=== PATIENT | female | born 1990 | race African-American/Black ===

== ENCOUNTER 2020-09-03 13:38 | Emergency (ER) | payer MEDICAID, OTHER ==
[~2020-09-03] VITALS: Ht 160 cm; Wt 91.0 kg
[2020-09-03 13:53] VITALS: BP 124/89
[2020-09-03] MEDS ORDERED: ACETAMINOPHEN 325MG TABLET PO ONE (15:00)
[2020-09-03] MEDS ORDERED: TETRACAINE 0.5% OPHTH DROPS 4ML LEFTEYE ONE (15:00)
[2020-09-03] MEDS ORDERED: FLUORESCEIN SODIUM 1MG/STRIP LEFTEYE ONE (15:00)
== END 2020-09-03 18:31 | disposition left against medical advice (07) ==
LOC: ER 13:38
DX: H57.12 Ocular pain, left eye (principal); H11.432 Conjunctival hyperemia, left eye; J45.909 Unspecified asthma, uncomplicated
CPT/HCPCS: 99281